=== PATIENT | female | born 1980 | race African-American/Black ===

== ENCOUNTER → 2020-08-09 | Outpatient (CLI) | payer OTHER ==
--- NOTE | 2020-08-09 16:49 | RAD ---
Examination: Bilateral digital diagnostic mammogram. INDICATION: 40-year-old woman with intermittent left breast focal pain at the approximate 12:00 position 3 cm from the nipple. At the time she presented for bilateral diagnostic imaging, she was asymptomatic and was recognized to have a clinical area of concern only after she had been discharged by the medical lab technologist. COMPARISON: None. This will serve as a baseline exam. TECHNIQUE: Bilateral CC and MLO views of the breasts were obtained with 2-D and 3-D technique and reviewed with computer-aided detection. FINDINGS: Heterogeneously dense breasts. No dominant mass, suspicious calcification or architectural distortion is apparent. Questionable asymmetry in the inferior posterior left breast on the 2-D image series does not persist on the 3-D images and represents overlap of dense fibroglandular tissue. IMPRESSION: Incomplete. Left breast needs additional imaging. Recommend targeted ultrasound of the left breast in the area of reported intermittent breast pain. The patient will be contacted and scheduled for additional imaging of this area. The right breast is negative and return to routine screening next due in one year. BI-RADS Category 0 Incomplete. Needs additional imaging evaluation Recommend targeted ultrasound of the patient's reported area of intermittent rest pain, presumably the superior periareolar left breast as described. Patient entered into into a reminder system with targeted due date for next mammogram. Electronically signed by: Ge Denise MD (08/09/2020 4:46 PM) [id number]
== END ==
LOC: MAMMO 13:38
PROVIDERS: ATTEND Nurse Practitioner Family
DX: R92.2 Inconclusive mammogram (principal); N64.4 Mastodynia
CPT/HCPCS: 77066; G0279; 77062

== ENCOUNTER → 2020-08-11 | Outpatient (CLI) | payer OTHER ==
--- NOTE | 2020-08-11 18:23 | RAD ---
Examination: Limited left breast ultrasound. INDICATION: 40-year-old woman presents for additional imaging following incomplete diagnostic breast imaging workup of focal left breast pain. COMPARISON: Baseline bilateral diagnostic mammogram of 08/09/2020. TECHNIQUE: Sonographic survey of the left breast including the retroareolar region, the left axilla, and the patient's area of discomfort at the 11:00 position was performed. FINDINGS: No sonographic correlate to the patient's area of discomfort is identified at the 11:00 position. An incidental oval circumscribed parallel orientation 4 mm mass compatible with a sonographically benign fibroadenoma is identified at the 12:00 position 2 cm from the nipple. Mild subareolar duct ectasia was also seen. No axillary adenopathy. IMPRESSION: Benign sonographic findings in the left breast. Recommend clinical management of any areas of persistent concern (including biopsy if there are any clinically suspicious findings). In the absence of a clinically suspicious finding, recommend patient return to routine screening next due in one year. BI-RADS Category 2 Benign findings Electronically signed by: Ge Denise MD (08/11/2020 6:20 PM) [id number]
== END ==
LOC: US 12:41
PROVIDERS: ATTEND Nurse Practitioner Family
DX: N63.42 Unspecified lump in left breast, subareolar (principal); N64.4 Mastodynia
CPT/HCPCS: 76641